=== PATIENT | male | born 1965 | race Caucasian/White ===

== ENCOUNTER → 2017-09-09 | Outpatient (CLI) | payer BC, OTHER ==
--- NOTE | 2017-09-10 12:38 | US ---
EXAM DESCRIPTION: Testicular CLINICAL HISTORY: 52 years Male, RIGHT TESTICULAR PAIN COMPARISON: None. TECHNIQUE: Sonographic images of the scrotum are obtained. FINDINGS: The right testicle measures 4.7 x 3.7 x 2.2 cm. The left testicle measures 4.7 x 3.6 x 2.8 cm. The testicles are diffusely homogeneous and normal in echogenicity. Normal symmetric vascular flow is seen. The right epididymis measures 5 x 13 x 6 mm. There is a small 4 x 5 mm anechoic cyst in the head of the right epididymis. The left epididymis measures 5 x 12 x 9 mm and is unremarkable. No significant varicocele or hydrocele is seen. IMPRESSION: Small right epididymal head cyst or spermatocele measures 5 mm. Otherwise unremarkable scrotal ultrasound. Electronically signed by: Zurdo Emery MD 09/10/2017 12:36 PM CDT
== END | disposition home or self-care (01) ==
LOC: US 11:00
PROVIDERS: ATTEND Family Medicine
DX: N44.2 Benign cyst of testis (principal)

== ENCOUNTER → 2017-10-20 | Outpatient (CLI) | payer BC, OTHER ==
--- NOTE | 2017-10-21 08:58 | CT ---
EXAM DESCRIPTION: CT Pelvis CLINICAL HISTORY: RT INGUINAL HERNIA COMPARISON: None. TECHNIQUE: Noncontrast transaxial CT images of the pelvis are obtained. This exam was performed according to our departmental dose-optimization program, which includes automated exposure control, adjustment of the mA and/or kV according to patient size and/or use of iterative reconstruction technique . FINDINGS: CT images show no significant asymmetry of the inguinal region. No significant inguinal hernia is identified on CT images. Visualized kidneys show no significant nephrolithiasis. There is an exophytic 15 mm cortical cyst on the lateral mid to lower pole of the left kidney with somewhat exophytic fluid attenuation 14 mm cortical cyst of the inferior pole contain small focus of calcification. There is a 17 mm partly visualized fluid attenuation cortical cyst of the midpole of the left kidney with layering calcification in the dependent portion of the cyst measuring 8 mm. The appendix is not identified. Mild scattered diverticuli of the sigmoid colon are seen without associated inflammatory changes or fluid collections. Urinary bladder is contracted and not well evaluated. Prostate is borderline enlarged without significant calcifications. No pathologic lymphadenopathy is seen. Mild atherosclerotic disease is noted. Soft tissues and musculature of the pelvis are unremarkable. Mild degenerative changes of the sacroiliac joints are seen. Moderate joint space narrowing in both hips is seen with [id number] circumferential osteophytes of both femoral heads. IMPRESSION: No CT evidence of significant inguinal hernia. Moderate osteoarthritic changes of both hips with mild osteoarthritic changes of the sacroiliac joints. Colon diverticulosis without CT evidence of diverticulitis. There are renal cortical cysts of the left kidney with at least 2 Bosniak type II F lesions containing small calcifications. Recommend follow-up imaging in 6 months to determine long-term stability. Electronically signed by: Zurdo Emery MD 10/21/2017 8:56 AM [facility]
== END | disposition home or self-care (01) ==
LOC: CT 08:43
PROVIDERS: ATTEND Urology
DX: R91.8 Other nonspecific abnormal finding of lung field (principal)